=== PATIENT | female | born 1935 | race Caucasian/White ===

== ENCOUNTER 2016-07-01 08:10 | Inpatient (IN) | payer OTHER ==
[~2016-07-01] VITALS: Ht 158.8 cm; Wt 68.7 kg
[~2016-07-01 08:10] MED LIST: ALBUAER2 INH; CALC600T9 PO; CAND1TAB21 PO; FLUT44AE INH; LEVO75TA5 PO; OLOP0.1S2 OPB; PLQ200 PO; PRD/1 PO
[2016-07-01] MEDS ORDERED: MoRPHine SULFATE 4 MG/ML 1 ML CARP\\VIAL IV STA (08:19)
[2016-07-01] MEDS ORDERED: SODIUM CHLORIDE 0.9% 500ML 500 ML IV STA (08:19)
--- NOTE | 2016-07-01 08:24 | EMERGENCY ROOM VISIT NOTE ---
History Report prepared by Rolf: Jeb Garcia Under the Supervision of: Dr. Thong Smiley M.D. First contact with patient: 08:10 Chief Complaint: CARDIAC ASSESSMENT Stated Complaint: CHEST PAIN History of Present Illness The patient is an 80 year old female who presents to the Emergency Room with complaints of improving right-sided chest pain that started at approximately 0630 this morning. The patient was sitting watching the news at onset. She came to the ED via ambulance, where she was given 3 doses of sublingual nitroglycerin , aspirin 324 mg, and 4 mg Zofran for nausea. There are no worsening factors known to the patient. The patient also complains of generalized weakness. She had similar pain two weeks ago. The patient has a history of cancer. She is s/p right breast mastectomy. The patient lives at home with her . Source of History: patient, EMS Onset: 0630 this morning Position: chest (right) Timing: other (improving) Modifying Factors (Worsening): other (none) Associated Symptoms: + nausea, + weakness Review of Systems See HPI for pertinent positives & negatives. A total of 10 systems reviewed and were otherwise negative. Past Medical & Surgical Medical Problems: (1) Chest pain Surgical Problems: (1) H/O mastectomy Family History Patient reports no known family medical history. Social History Marital Status: Housing Status: lives with family Current/Historical Medications Scheduled Alendronate/Cholecalciferol (Fosamax+D 70MG/2800 Iu), 1 TABLET PO WK Calcium Carbonate-Vitamin D (Calcium + D), 1 TAB PO QAM Calcium W/ Vitamins D & K (Viactiv), 1,000 INTER.UNIT PO DAILY Candesartan Cilexetil (Atacand), 32 MG PO DAILY Fluticasone Propionate (Flovent Hfa), 2 PUFFS INH BID Fluticasone Propionate (Nasal) (Flonase Allergy Relief), 2 SPRAYS KOJO DAILY Hydroxychloroquine Sulfate (Hydroxychloroquine Sulfat), 200 MG PO DAILY Levothyroxine Sodium (Levothyroxine Sodium), 75 MCG PO QAM Olopatadine Hcl (Patanol 0.1% Oph), 1 DROP OPB BID Prednisone (Prednisone), 7.5 MG PO DAILY [Azelastine Hcl ], 2 PUFFS NA DAILY Allergies Coded Allergies: Meperidine (Verified Allergy, Mild, 07/01/16) Polyethylene Glycol (Verified Allergy, Mild, 07/01/16) Uncoded Allergies: GO LYTE BOWEL PREP (Allergy, Unknown, HIVES, 08/16/14) Physical Exam Vital Signs Date Time Temp Pulse Resp B/P Pulse Ox O2 Delivery O2 Flow Rate FiO2 07/01/16 10:30 76 20 139/68 100 Nasal Cannula 2.0 07/01/16 10:11 78 20 127/69 100 Nasal Cannula 2.0 07/01/16 09:43 73 18 119/70 97 Nasal Cannula 2.0 07/01/16 08:51 71 18 121/74 97 Nasal Cannula 2.0 07/01/16 08:30 72 18 113/54 97 Nasal Cannula 2.0 07/01/16 08:21 75 07/01/16 08:20 96 Nasal Cannula 2.0 07/01/16 08:13 96 Nasal Cannula 2.0 07/01/16 08:13 96 2.0 07/01/16 08:11 36.5 77 20 116/55 95 Room Air Physical Exam GENERAL: Patient is a healthy-appearing well-nourished HEAD: Normocephalic atraumatic EYES: Ocular movements intact pupils equal and react to light OROPHARYNX mucous membranes are moist no exudates present no erythema or edema present NECK: Supple no nuchal rigidity CHEST: Good equal expansion LUNGS: Clear and equal to auscultation CARDIAC: Normal S1 and S2 ABDOMEN: Soft nontender no guarding BACK: No CVA tenderness EXTREMITIES: No pain upon palpation normal muscle strength in all groups no clubbing cyanosis or edema NEURO: Patient is following commands is answering questions appropriately. Alert and oriented x3 Cranial Nerves 2-12 grossly intact Medical Decision & Procedures ER Provider Diagnostic Interpretation: X-ray results as stated below per interpretation by me and the radiologist: CHEST ONE VIEW PORTABLE CLINICAL HISTORY: CHEST PAIN dyspnea COMPARISON STUDY: No previous studies for comparison. FINDINGS: The bones soft tissues and hemidiaphragms are normal. The cardiomediastinal silhouette is normal. The lungs are clear. The pulmonary vasculature is normal. IMPRESSION: Negative chest. Electronically signed by: Nabeel Garcia M.D. 07/01/2016 8:48 AM Dictated Date/Time: 07/01/2016 8:47 AM Laboratory Results 07/01/16 08:00 Red Blood Count 3.95, Mean Corpuscular Volume 91.1, Mean Corpuscular Hemoglobin 29.4, Mean Corpuscular Hemoglobin Concent 32.2, Mean Platelet Volume 9.4, Neutrophils (%) (Auto) 60.8, Lymphocytes (%) (Auto) 23.0, Monocytes (%) (Auto) 8.2, Eosinophils (%) (Auto) 7.0, Basophils (%) (Auto) 0.6, Neutrophils # (Auto) 7.37, Lymphocytes # (Auto) 2.79, Monocytes # (Auto) 1.00, Eosinophils # (Auto) 0.85, Basophils # (Auto) 0.07 07/01/16 08:00 Test 07/01/16 08:00 07/01/16 08:23 07/01/16 08:25 White Blood Count 12.13 K/uL (4.8-10.8) Red Blood Count 3.95 M/uL (4.2-5.4) Hemoglobin 11.6 g/dL (12.0-16.0) Hematocrit 36.0 % (37-47) Mean Corpuscular Volume 91.1 fL (80-100) Mean Corpuscular Hemoglobin 29.4 pg (25-34) Mean Corpuscular Hemoglobin Concent 32.2 g/dl (32-36) Platelet Count 343 K/uL (130-400) Mean Platelet Volume 9.4 fL (7.4-10.4) Neutrophils (%) (Auto) 60.8 % Lymphocytes (%) (Auto) 23.0 % Monocytes (%) (Auto) 8.2 % Eosinophils (%) (Auto) 7.0 % Basophils (%) (Auto) 0.6 % Neutrophils # (Auto) 7.37 K/uL (1.4-6.5) Lymphocytes # (Auto) 2.79 K/uL (1.2-3.4) Monocytes # (Auto) 1.00 K/uL (0.11-0.59) Eosinophils # (Auto) 0.85 K/uL (0-0.5) Basophils # (Auto) 0.07 K/uL (0-0.2) RDW Standard Deviation 44.4 fL (36.4-46.3) RDW Coefficient of Variation 13.4 % (11.5-14.5) Immature Granulocyte % (Auto) 0.4 % Immature Granulocyte # (Auto) 0.05 K/uL (0.00-0.02) Prothrombin Time 10.7 SECONDS (9.0-12.0) Prothromb Time International Ratio 1.0 (0.9-1.1) Estimated GFR () 49.4 Estimated GFR (Non- 42.7 BUN/Creatinine Ratio 23.3 (10-20) Calcium Level 10.0 mg/dl (8.5-10.1) Total Bilirubin 0.3 mg/dl (0.2-1) Direct Bilirubin < 0.1 mg/dl (0-0.2) Aspartate Amino Transf (AST/SGOT) 18 U/L (15-37) Alanine Aminotransferase (ALT/SGPT) 17 U/L (12-78) Alkaline Phosphatase 73 U/L (45-117) Total Creatine Kinase 44 U/L (26-192) Creatine Kinase MB 0.5 ng/ml (0.5-3.6) Creatine Kinase MB Ratio 1.1 (0-3.0) Total Protein 7.1 gm/dl (6.4-8.2) Albumin 3.2 gm/dl (3.4-5.0) Lipase 143 U/L (73-393) Bedside D-Dimer 409 ng/mlFEU (0-450) Bedside Hemoglobin 11.6 g/dl (12.0-16.0) Bedside Hematocrit 34 % (37-47) Bedside Sodium 137 mEq/L (135-144) Bedside Potassium 3.8 mEq/L (3.3-5.0) Bedside Chloride 99 mEq/L (101-112) Bedside Total CO2 26 mEq/l (24-31) Anion Gap 16.0 mmol/L (16-25) Bedside Blood Urea Nitrogen 33 mg/dl (7-18) Bedside Creatinine 1.1 mg/dl (0.6-1.3) Bedside Glucose (other) 126 mg/dl (70-99) Bedside Ionized Calcium (Kina) 1.23 mmol/l (1.12-1.32) Labs reviewed by ED physician. Medications Administered Medications (Trade) Dose Ordered Sig/Elpidio Route Start Time Stop Time Status Last Admin Dose Admin Morphine Sulfate 4 mg 4 mg NOW STAT IV 07/01/16 08:19 07/01/16 08:21 DC 07/01/16 08:26 4 MG Sodium Chloride (Nss 500ml) 500 ml @ 999 mls/hr Q31M STAT IV 07/01/16 08:19 07/01/16 08:49 DC 07/01/16 08:19 999 MLS/HR ECG Indication: chest pain Rate (beats per minute): 75 Rhythm: sinus rhythm Findings: 1st degree AV block, no acute ischemic change, no ectopy Comparison ECG Date: 16 Aug 2014 Change: no significant change ED Course 0812: Past medical records reviewed. The patient was evaluated in room A1. A complete history and physical examination was performed. 0819: NSS 500 ml @ 999 mls/hr, Morphine Sulfate 4 mg IV. 0908: Updated the patient and her . 0955: Discussed the case with Dr. Luque [facility]. The patient will be evaluated. Medical Decision Differential diagnosis: Etiologies such as cardiac ischemia, aortic dissection, pulmonary embolism, pneumonia, pneumothorax, musculoskeletal, infections, pericarditis, myocarditis , esophageal rupture, gastrointestinal, as well as others were entertained. This is an 80-year-old female who presents emergency department complainingof chest pain. The patient was given nitroglycerin and aspirin without relief of the pain. She was given morphine and Zofran. She has normal CK-MB troponin. Her EKG a slight changes however does not meet STEMI criteria. Based on the findings I did discuss the case with the hospitalist service who agreed to admit the patient. Patient was in agreement with the treatment plan. Consults Time Called: 909 Consulting Physician: Dr. Luque [facility]. Returned Call: [phone]: Discussed the case with Dr. Luque [facility]. The patient will be evaluated. Impression Primary Impression: Right-sided chest pain Scribe Attestation The scribe's documentation has been prepared under my direction and personally reviewed by me in its entirety. I confirm that the note above accurately reflects all work, treatment, procedures, and medical decision making performed by me. Departure Information Dispostion Being Evaluated By Hospitalist Patient Instructions [facility]
[2016-07-01 08:35] LABS: BASO % 0.6 %; BASO ABS # 0.07 K/uL (0-0.2); COMPLETE YES; IG% 0.4 %; LYMPH ABS # 2.79 K/uL (1.2-3.4); MEAN CELL VOLUME 91.1 fL (80-100); MEAN CORPUSCULAR HEMOGLOBIN 29.4 pg (25-34); MEAN CORPUSCULAR HGB CONC 32.2 g/dl (32-36); MEAN PLATELET VOLUME 9.4 fL (7.4-10.4); MONO % 8.2 %; NEUT % 60.8 %; PLATELET COUNT 343 K/uL (130-400); RED BLOOD COUNT 3.95 M/uL (4.2-5.4); WHITE BLOOD COUNT 12.13 K/uL (4.8-10.8)
[2016-07-01 08:37] LABS: ISTAT CREATININE 1.1 mg/dl (0.6-1.3); ISTAT HEMOGLOBIN 11.6 g/dl (12.0-16.0); ISTAT IONIZED CALCIUM 1.23 mmol/l (1.12-1.32)
[2016-07-01 08:46] LABS: PROTHROMBIN TIME (PATIENT) 10.7 SECONDS (9.0-12.0)
--- NOTE | 2016-07-01 08:49 | DIAGNOSTIC IMAGING REPORT ---
CHEST ONE VIEW PORTABLE CLINICAL HISTORY: CHEST PAIN dyspnea COMPARISON STUDY: No previous studies for comparison. FINDINGS: The bones soft tissues and hemidiaphragms are normal. The cardiomediastinal silhouette is normal. The lungs are clear. The pulmonary vasculature is normal. IMPRESSION: Negative chest. Electronically signed by: Nabeel Garcia M.D. 07/01/2016 8:48 AM Dictated Date/Time: 07/01/2016 8:47 AM
[2016-07-01 08:55] LABS: ALT/SGPT 17 U/L (12-78); BLOOD UREA NITROGEN 28 mg/dl (7-18); BUN/CREATININE RATIO 23.3 (10-20); CARBON DIOXIDE 25 mmol/L (21-32); CHLORIDE 101 mmol/L (98-107); GLUCOSE 116 mg/dl (70-99); POTASSIUM 3.6 mmol/L (3.5-5.1); SODIUM 137 mmol/L (136-145)
[2016-07-01 09:00] LABS: ALKALINE PHOSPHATASE 73 U/L (45-117); AST/SGOT 18 U/L (15-37); CKMB/CK RATIO 1.1 (0-3.0)
[2016-07-01] MEDS ORDERED: FSMD/70 PO (09:03)
[2016-07-01] MEDS ORDERED: FLUT0.15 NAE (09:03)
[2016-07-01] MEDS ORDERED: CAND32TA2 PO (09:03)
[2016-07-01] MEDS ORDERED: AZELASTINE HCL (09:03)
[2016-07-01] MEDS ORDERED: CALC8.5C PO (09:03)
[2016-07-01] MEDS ORDERED: PRD/1 PO (09:03)
[2016-07-01] MEDS ORDERED: FLVHFA110 INH (09:03)
[2016-07-01] MEDS ORDERED: AZEL0.055 OP (09:03)
[2016-07-01] MEDS ORDERED: ALUMINUM/MAGNESIUM/SIMETH (MAALOX MAX) 30 ML UDC PO PRN (10:45)
[2016-07-01] MEDS ORDERED: ONDANSETRON INJ 2 MG/ML 2 ML VIAL IV PRN (10:45)
[2016-07-01] MEDS ORDERED: HydrALAZINE HCL 20 MG/ML VIAL IV. PRN (10:45)
[2016-07-01] MEDS ORDERED: NITROGLYCERIN 0.4 MG SL PER TAB CHARGE SL PRN (10:45)
[2016-07-01] MEDS ORDERED: ACETAMINOPHEN 325 MG TAB PO PRN (10:45)
[2016-07-01] MEDS ORDERED: MoRPHine SULFATE 2 MG/ML CARP IV PRN (10:45)
[2016-07-01] MEDS ORDERED: MAGNESIUM HYDROXIDE SUSP 30 ML UDC PO PRN (10:45)
--- NOTE | 2016-07-01 11:08 | History and Physical ---
History & Physical Date & Time of Service: Jul 01, 2016 at 10:42 Chief Complaint: Chest Pain Primary Care Physician: Travis Paredes M.D. History of Present Illness Source: patient, family, clinic records, hospital records Patient is a pleasant 80 y/o female, with PMHx of HTN, hypothyroidism, asthma, and RA, who presented to the ED because of right-sided CP. CP began around 0630 this AM. Pain is right-sided and radiates under right armpit. Denies any alleviating/aggravating factors. 1 episode of vomiting associated with CP. Currently, pain has improved, but still present. She does not described the pain as a pressure, but states "it's just painful." Patient admits to a similar episode a few weeks ago. She did not seek medical care at that time as pain quickly went away. She denies any cardiac history. Denies hx of DVT/PE, TIA/ stroke. Patient also admits to increase weakness- however, she attributes this to her RA. +chronic joint/muscle aches. Patient denies any fever, chills, sweats , lightheadedness, dizziness, vision changes, palpitations, edema, SOB, wheezing , cough, abdominal pain, nausea, diarrhea, urinary symptoms, melena, numbness/ tingling, anxiety/depression, active bleeding, or new skin discoloration/ changes. Past Medical/Surgical History Medical hx: 1. HTN 2. Hypothyroidism 3. Asthma 4. RA Surgical Problems: 1. s/p mastectomy 2. Colon surgery 3. Sinus surgery Family History 1. CHF 2. CAD 3. Colon cancer 4. Breast cancer 5. Ovarian cancer Social History Smoking Status: Former Smoker Marital Status: Housing status: lives with significant other Immunizations History of Influenza Vaccine: Yes History of Tetanus Vaccine?: No History of Pneumococcal: Yes History of Hepatitis B Vaccine: No Multi-Drug Resistant Organisms History of MDRO: No Allergies Coded Allergies: Meperidine (Verified Allergy, Mild, 07/01/16) Polyethylene Glycol (Verified Allergy, Mild, 07/01/16) Uncoded Allergies: GO LYTE BOWEL PREP (Allergy, Unknown, HIVES, 08/16/14) Home Medications Scheduled Alendronate/Cholecalciferol (Fosamax+D 70MG/2800 Iu), 1 TABLET PO WK Calcium Carbonate-Vitamin D (Calcium + D), 1 TAB PO QAM Calcium W/ Vitamins D & K (Viactiv), 1,000 INTER.UNIT PO DAILY Candesartan Cilexetil (Atacand), 32 MG PO DAILY Fluticasone Propionate (Flovent Hfa), 4 PUFFS INH DAILY Fluticasone Propionate (Nasal) (Flonase Allergy Relief), 2 SPRAYS KOJO DAILY Hydroxychloroquine Sulfate (Hydroxychloroquine Sulfat), 200 MG PO DAILY Levothyroxine Sodium (Levothyroxine Sodium), 75 MCG PO QAM Olopatadine Hcl (Patanol 0.1% Oph), 1 DROP OPB BID Prednisone (Prednisone), 7.5 MG PO DAILY [Azelastine Hcl ], 2 PUFFS PO DAILY Physical Exam Vital Signs Date Time Temp Pulse Resp B/P Pulse Ox O2 Delivery O2 Flow Rate FiO2 07/01/16 10:11 78 20 127/69 100 Nasal Cannula 2.0 07/01/16 09:43 73 18 119/70 97 Nasal Cannula 2.0 07/01/16 08:51 71 18 121/74 97 Nasal Cannula 2.0 07/01/16 08:30 72 18 113/54 97 Nasal Cannula 2.0 07/01/16 08:21 75 07/01/16 08:20 96 Nasal Cannula 2.0 07/01/16 08:13 96 Nasal Cannula 2.0 07/01/16 08:13 96 2.0 07/01/16 08:11 36.5 77 20 116/55 95 Room Air General Appearance: no apparent distress Head: normocephalic, atraumatic Eyes: normal inspection, PERRL ENT: hearing grossly normal Neck: supple Respiratory/Chest: lungs clear, no respiratory distress, no accessory muscle use Cardiovascular: regular rate, rhythm, + systolic murmur Abdomen/GI: normal bowel sounds, non tender, soft Extremities/Musculoskelatal: no calf tenderness, no pedal edema Neurologic/Psych: alert, normal mood/affect, oriented x 3 Skin: normal color, warm/dry, no rash Diagnostics Laboratory Results Results Past 24 Hours Test 07/01/16 08:00 07/01/16 08:23 07/01/16 08:25 Range/Units White Blood Count 12.13 4.8-10.8 K/uL Red Blood Count 3.95 4.2-5.4 M/uL Hemoglobin 11.6 12.0-16.0 g/dL Hematocrit 36.0 37-47 % Mean Corpuscular Volume 91.1 80-100 fL Mean Corpuscular Hemoglobin 29.4 25-34 pg Mean Corpuscular Hemoglobin Concent 32.2 32-36 g/dl Platelet Count 343 130-400 K/uL Mean Platelet Volume 9.4 7.4-10.4 fL Neutrophils (%) (Auto) 60.8 % Lymphocytes (%) (Auto) 23.0 % Monocytes (%) (Auto) 8.2 % Eosinophils (%) (Auto) 7.0 % Basophils (%) (Auto) 0.6 % Neutrophils # (Auto) 7.37 1.4-6.5 K/uL Lymphocytes # (Auto) 2.79 1.2-3.4 K/uL Monocytes # (Auto) 1.00 0.11-0.59 K/uL Eosinophils # (Auto) 0.85 0-0.5 K/uL Basophils # (Auto) 0.07 0-0.2 K/uL RDW Standard Deviation 44.4 36.4-46.3 fL RDW Coefficient of Variation 13.4 11.5-14.5 % Immature Granulocyte % (Auto) 0.4 % Immature Granulocyte # (Auto) 0.05 0.00-0.02 K/uL Prothrombin Time 10.7 9.0-12.0 SECONDS Prothromb Time International Ratio 1.0 0.9-1.1 Sodium Level 137 136-145 mmol/L Potassium Level 3.6 3.5-5.1 mmol/L Chloride Level 101 98-107 mmol/L Carbon Dioxide Level 25 21-32 mmol/L Anion Gap 11.0 16.0 16-25 mmol/L Blood Urea Nitrogen 28 7-18 mg/dl Creatinine 1.20 0.60-1.20 mg/dl Estimated GFR () 49.4 Estimated GFR (Non- 42.7 BUN/Creatinine Ratio 23.3 10-20 Random Glucose 116 70-99 mg/dl Calcium Level 10.0 8.5-10.1 mg/dl Total Bilirubin 0.3 0.2-1 mg/dl Direct Bilirubin < 0.1 0-0.2 mg/dl Aspartate Amino Transf (AST/SGOT) 18 15-37 U/L Alanine Aminotransferase (ALT/SGPT) 17 12-78 U/L Alkaline Phosphatase 73 45-117 U/L Total Creatine Kinase 44 26-192 U/L Creatine Kinase MB 0.5 0.5-3.6 ng/ml Creatine Kinase MB Ratio 1.1 0-3.0 Troponin I < 0.015 0-0.045 ng/ml Total Protein 7.1 6.4-8.2 gm/dl Albumin 3.2 3.4-5.0 gm/dl Lipase 143 73-393 U/L Bedside D-Dimer 409 0-450 ng/mlFEU Bedside Hemoglobin 11.6 12.0-16.0 g/dl Bedside Hematocrit 34 37-47 % Bedside Sodium 137 135-144 mEq/L Bedside Potassium 3.8 3.3-5.0 mEq/L Bedside Chloride 99 101-112 mEq/L Bedside Total CO2 26 24-31 mEq/l Bedside Blood Urea Nitrogen 33 7-18 mg/dl Bedside Creatinine 1.1 0.6-1.3 mg/dl Bedside Glucose (other) 126 70-99 mg/dl Bedside Ionized Calcium (Kina) 1.23 1.12-1.32 mmol/l Diagnostic Radiology CHEST ONE VIEW PORTABLE CLINICAL HISTORY: CHEST PAIN dyspnea COMPARISON STUDY: No previous studies for comparison. FINDINGS: The bones soft tissues and hemidiaphragms are normal. The cardiomediastinal silhouette is normal. The lungs are clear. The pulmonary vasculature is normal. IMPRESSION: Negative chest. Electronically signed by: Nabeel Garcia M.D. 07/01/2016 8:48 AM Dictated Date/Time: 07/01/2016 8:47 AM The status of this report is Signed. Draft = Not yet reviewed or approved by Radiologist. Signed = Reviewed and approved by Radiologist. EKG VARGHESE ROSS ID:[id number] 01-JUL-2016 08:13:09 [facility] Sinus rhythm with 1st degree A-V block ST elevation, consider lateral injury pattern Abnormal ECG When compared with ECG of 16-AUG-2014 11:22, ST elevation now present in Lateral leads Confirmed by MARTA LUDWIG ([id number]) on 07/01/2016 10:52:29 AM 25mm/s 10mm/mV 150Hz 8.0 SP2 12SL 241 HD DARCI: 12 Referred by: Confirmed By: MARTA OZIEL Vent. rate 75 BPM PA interval 210 ms QRS duration 96 ms QT/QTc 396/442 ms P-R-T axes 45 16 1935 (80 yr) Female Room: Loc:15 [employer]s Architect:NARCISO ALCARAZ Test ind: Impression Assessment and Plan 80 y/o female, with PMHx of HTN, hypothyroidism, asthma, and RA, who presented to the ED because of right-sided CP Cardiac r/o: - Admit tele for cardiac monitoring - Trend cardiac enzymes- initial set negative - Check lipid panel and ha1c - IV NSS @ 80 ml/hr - IV Morphine 0.5 mg q3 hrs PRN for severe pain, Tylenol 650 mg PO PRN for mild- moderate pain - Start ASA 81 mg PO daily - Check ECHO - EKG- ST elevation in lateral leads. Repeat tomorrow AM - PRP and mag level tomorrow AM Leukocytosis, like secondary to Prednisone treatment for RA: - CXR- no acute processes - Check U/A - Follow CBC Weakness: Consult PT/OT HTN: - Continue Atacand 32 mg PO daily - Hydralazine 10 mg IV PRN SBP >170 or DBP >100 Hypothyroidism: - Continue Synthroid 75 mcg PO daily - TSH in Feb 2016 WNL Asthma: Continue home inhalers RA: Continue Plaquenil 200 mg PO daily, Prednisone 7.5 mg PO daily DVT prophylaxis: Heparin 5000 units SQ q12 hrs, TARYN and SCDs Code Status: LEVEL I, FULL Dispo: From home, lives with Level of Care Telemetry Resuscitation Status FULL RESUSCITATION VTE Prophylaxis VTE Risk Assessment Done? Y/N: Yes Risk Level: Moderate Given or contraindicated: Unfractionated heparin SQ
[2016-07-01] MEDS ORDERED: IV FLUIDS COMPLETED PRN (11:45)
[2016-07-01 12:15] VITALS: BP 132/68; PULSE 84; TEMP 36.8; O2SAT 94; Ht 158.8 cm; Wt 68.7 kg
[2016-07-01] MEDS: NSS + 20MEQ KCL 1000ML 1,000 ML IV SCH (14:22)
[2016-07-01] MEDS: AZELASTINE~ORDER AWAITING ACTION SCH (14:23)
[2016-07-01 15:20] VITALS: BP 144/79; PULSE 77; TEMP 36.6; O2SAT 98
[2016-07-01] MEDS ORDERED: METOPROLOL TARTRATE 25 MG TAB PO ONE (15:44)
[2016-07-01] MEDS ORDERED: ATORVASTATIN 10 MG TAB PO ONE (15:45)
[2016-07-01 16:03] LABS: URINE APPEARANCE CLEAR (CLEAR); URINE BILIRUBIN NEG (NEG); URINE COLOR YELLOW; URINE EPITHELIAL CELL AUTO 0-5 /lpf (0-5); URINE NITRITE NEG (NEG); URINE SPECIFIC GRAVITY 1.015 (1.000-1.030); UROBILINOGEN NEG (NEG); ZZUR CULT IF INDIC CLEAN CATCH NO
[2016-07-01 16:05] LABS: MANUAL MICROSCOPIC REQUIRED? NO; REVIEW REQ? NO
--- NOTE | 2016-07-01 18:12 | DIAGNOSTIC IMAGING REPORT ---
BILATERAL LOWER EXTREMITY VENOUS DOPPLER HISTORY: leg pain, swelling COMPARISON STUDY: None. FINDINGS: There is normal compressibility, flow, and augmentation within the bilateral lower extremity deep venous systems. IMPRESSION: No DVT within the right or left lower extremity. Electronically signed by: Regan Boyce M.D. 07/01/2016 6:11 PM Dictated Date/Time: 07/01/2016 6:10 PM
[2016-07-01] MEDS: HEPARIN 25,000 UNIT/500ML D5W 500 ML IV PRN (18:14)
[2016-07-01 18:46] VITALS: BP 149/72; PULSE 76; TEMP 36.8; O2SAT 95
[2016-07-01 20:15] VITALS: O2SAT 95
[2016-07-01] MEDS ORDERED: HEPARIN SOD 5000 UNIT/0.5 ML CARP SQ SCH (21:00)
[2016-07-01] MEDS: METOPROLOL TARTRATE 25 MG TAB PO SCH (21:21)
[2016-07-01] MEDS: FLUTICASONE HFA 110MCG INHALER INH SCH (21:21)
--- NOTE | 2016-07-01 21:34 | CARDIOLOGY CONSULTATION ---
DATE OF CONSULTATION: 07/01/2016 CONSULTING PHYSICIAN: Dr. Miller. REASON FOR CONSULTATION: NSTEMI. TIME: 1708 p.m. HISTORY OF PRESENT ILLNESS: Mrs. Malave is a pleasant 80-year-old female with a history significant for hypertension, rheumatoid arthritis and hypothyroidism. She reported to [facility] with chest pain. Approximately 2 weeks ago, she had chest discomfort while sitting watching TV. She described it as an achy sensation throughout her entire chest. There was no radiation, shortness of breath or diaphoresis. There was no specific trigger and it spontaneously resolved within 3-5 minutes. For the past week while exercising she has noticed decreased exercise tolerance. She walks on a treadmill for 60-70 minutes each day. She stated that she reduced speed due to this decreased exercise tolerance throughout the past week. She had no exertional chest pain; however, or shortness of breath. She woke up this morning at approximately 4:30 a.m. Sometime between then and 6:30, she developed a sharp right-sided chest discomfort. It radiated to her right axilla. She then went to the restroom and had 2 or 3 bowel movements, developed nausea and one episode of vomiting. Although it felt as though she had difficulty taking deep breaths, there was no definite shortness of breath. There was no diaphoresis. She eventually called 911. Three nitroglycerins sprays were given without relief. She also had 4 baby aspirin. She was given morphine and this helped her symptoms. Her symptoms persisted throughout the day before completely resolving early this afternoon. She is completely chest pain free at this time. She denies shortness of breath, syncope, near syncope, palpitations, lower extremity edema, fevers, chills, abdominal pain. She denies melena, hematochezia, hematuria, or other bleeding. Approximately a week ago, she had left lower extremity pain which she attributed to Polanco cyst. There was no erythema or swelling per her report. This pain resolved. There has not been any injury to that area and there has not been any recent travel. She denies any history of clotting disorder or previous clot. REVIEW OF SYSTEMS: As above and otherwise review of systems is negative. PAST MEDICAL HISTORY: 1. Hypertension. 2. Hypothyroidism. 3. Asthma. 4. Rheumatoid arthritis. 5. Colon cancer in 1992, status post colon surgery. 6. Breast cancer in 1993, status post right mastectomy. She has not received any chemotherapy or radiation therapy. 7. Sinus surgery. 8. Left TKA. HOME MEDICATIONS: Include Atacand 32 mg daily, levothyroxine 75 mcg daily, prednisone 5 mg daily, Fosamax. INPATIENT MEDICATIONS: Include aspirin 325 mg daily, Lipitor 10 mg daily, Atacand 24 mg daily, heparin drip per protocol, Synthroid 75 mcg daily, metoprolol tartrate 12.5 mg p.o. b.i.d., prednisone 7.5 mg daily. ALLERGIES: GOLYTELY BOWEL PREP, MEPERIDINE, POLYETHYLENE GLYCOL. SOCIAL HISTORY: Quit smoking greater than 30 years ago. This was after approximately 20 pack years. No alcohol. No drugs. She is , lives with her . She has 2 children, 1 in [place] and 1 in [place]. She has no grandchildren. She is currently alone in her hospital room. FAMILY HISTORY: Father at the age of 52 with myocardial infarction. Mother at the age of 98. PHYSICAL EXAMINATION: VITAL SIGNS: Temperature 36.6 degrees, heart rate 77 beats per minute, respiration rate 19, blood pressure 144/79 mmHg; however, blood pressure has otherwise been normotensive. Oxygen saturation 98% on room air. Weight is 68 kg. GENERAL: In no acute distress. She is alert and oriented. HEENT: Anicteric sclerae. NECK: No appreciable JVD. No bruits. Normal carotid upstrokes bilaterally. CARDIAC: PMI nonpalpable. There was no ventricular heave. Regular, normal S1, S2. 2/6 early to mid peaking systolic ejection murmur best heard at the right upper sternal border. No rubs or gallops. LUNGS: Clear to auscultation bilaterally without wheezes, rales or rhonchi. ABDOMEN: Soft, nontender, nondistended, normoactive bowel sounds, no bruits noted. EXTREMITIES: Rheumatoid arthritic changes to her hands. 2+ radial pulses bilaterally. Anjel's test okay. She does have more swelling in her right wrist which she states is typical for her rheumatoid arthritis. 2+ femoral pulses bilaterally without bruits. 2+ dorsalis pedis pulses bilaterally. No cyanosis. No lower extremity edema. No palpable cords. PSYCHIATRIC: Affect appears appropriate. ECG upon presentation demonstrated sinus rhythm with first-degree AV block. There was ST elevation in the lateral leads, which was new compared to 08/16/2014. A repeat ECG was ordered following our visit. This was personally reviewed as well. Sinus rhythm at 69 beats per minute. Lateral ST elevation no longer present. LABORATORY DATA: White blood cell count 12.13, hemoglobin 11.6, platelets 343. Sodium 137, potassium 3.6, BUN 28, creatinine 1.2. Initial troponin was undetectable. Repeat troponin at 1345 was 0.913, AST 18, ALT 17, albumin 3.2. INR is 1. D-dimer 409. Lower extremity duplex report reviewed. No DVT reported by radiology. Chest x-ray image personally reviewed. No acute abnormality visualized. Radiology interpretation "negative chest." Telemetry personally reviewed. No arrhythmias. ASSESSMENT AND PLAN: 1. Acute myocardial infarction: Her chest discomfort is atypical in the sense that it is in the right side of the chest; however, she had abnormal ECG and abnormal troponin levels with recent decreased exercise tolerance. She actually had mild ST elevations in the lateral leads. Continue telemetry. Agree with heparin drip. Continue beta-primitivo if tolerated. Recommend high intensity statin therapy. Echocardiogram pending. We discussed treatment strategies. We also discussed cardiac catheterization. Risks and benefits were discussed with her in detail. Coronary angiography is being considered for tomorrow now that her lower extremity duplex is negative. She was made aware that CT surgery is not available at this facility. There is no urgent indication for cardiac catheterization at this time as she is completely asymptomatic without chest pain and her ST elevations have resolved. She was asked to notify nursing staff immediately for recurrent symptoms. 2. Hypertension: Blood pressure has been adequately controlled. Her most recent blood pressure was slightly elevated, but otherwise normotensive. Continue current regimen for now. 3. Lipids: A fasting lipid profile will be ordered for tomorrow morning. For now, will increase atorvastatin for high intensity statin therapy given myocardial infarction. 4. Disposition: Cardiology will continue to follow. The patient's care has been discussed with Dr. Miller, primary hospitalist. Highly complex medical issues. Thank you for allowing me to participate in the care of Ms. Malave. MARÍA
[2016-07-01 22:53] VITALS: BP 145/74; PULSE 68; TEMP 36.6; O2SAT 95
[2016-07-02] VITALS (16 sets, daily range): BP systolic 114–152; BP diastolic 69–82; PULSE 62–75; TEMP 36.2–36.8; O2SAT 93–98
[2016-07-02 01:29] LABS: PARTIAL THROMBOPLASTIN RATIO 3.2
[2016-07-02] MEDS: NSS + 20MEQ KCL 1000ML 1,000 ML IV SCH ×3 (04:30→22:21)
[2016-07-02] MEDS: LEVOTHYROXINE 75 MCG TAB PO SCH (07:05)
[2016-07-02 07:58] LABS: HEMATOCRIT 31.9 % (37-47); MEAN CELL VOLUME 91.1 fL (80-100); MEAN CORPUSCULAR HGB CONC 32.9 g/dl (32-36); MEAN PLATELET VOLUME 8.9 fL (7.4-10.4); PLATELET COUNT 292 K/uL (130-400); WHITE BLOOD COUNT 8.92 K/uL (4.8-10.8)
--- NOTE | 2016-07-02 07:59 | Hospitalist Progress Note ---
Hospitalist Progress Note Date of Service Jul 02, 2016. Subjective Pt evaluation today including: conversation w/ patient, physical exam, chart review, lab review, review of studies, review of inpatient medication list Pain: None PO Intake: NPO Voiding: no voiding problems The patient was seen and examined this morning. Pt is present at bedside. She reports no chest pain or tightenss this morning. She denies feeling short of breath today, but does complain of being more easily fatigued with exertion. Discussion was held regarding negative dopplers for DVT, and plans for cardiac cath later today. Dr. Mendenhall came into the room at the end of interview and reaffirmed the plan. Constitutional: + fatigue, No chills, No fever Eyes: No diplopia, No redness ENT: No nasal symptoms, No trouble swallowing Respiratory: + dyspnea on exertion, No cough, No dyspnea at rest, No sputum Cardiovascular: No chest pain, No palpitations Abdomen: No constipation, No diarrhea, No nausea, No pain, No vomiting Musculoskeletal: + joint pain (hx of RA), No muscle pain, No swelling Female : No dysuria, No hematuria Skin: No itch, No rash Objective Vital Signs Date Time Temp Pulse Resp B/P Pulse Ox O2 Delivery O2 Flow Rate FiO2 07/02/16 04:10 Room Air 07/02/16 03:36 36.5 74 22 138/74 95 Room Air 07/02/16 00:10 95 Room Air 07/01/16 22:53 36.6 68 18 145/74 95 Room Air 07/01/16 20:15 95 Room Air 07/01/16 18:46 36.8 76 18 149/72 95 Room Air 07/01/16 16:00 Room Air 07/01/16 15:20 36.6 77 19 144/79 98 Room Air 07/01/16 12:15 36.8 84 16 132/68 94 Room Air 07/01/16 11:40 72 20 131/64 100 Nasal Cannula 2.0 07/01/16 11:35 75 07/01/16 11:15 72 20 139/66 100 07/01/16 11:00 74 20 137/65 100 2.0 07/01/16 10:45 74 20 139/68 100 Nasal Cannula 2.0 07/01/16 10:30 76 20 139/68 100 Nasal Cannula 2.0 07/01/16 10:11 78 20 127/69 100 Nasal Cannula 2.0 07/01/16 09:43 73 18 119/70 97 Nasal Cannula 2.0 07/01/16 08:51 71 18 121/74 97 Nasal Cannula 2.0 07/01/16 08:30 72 18 113/54 97 Nasal Cannula 2.0 07/01/16 08:21 75 07/01/16 08:20 96 Nasal Cannula 2.0 07/01/16 08:13 96 Nasal Cannula 2.0 07/01/16 08:13 96 2.0 07/01/16 08:11 36.5 77 20 116/55 95 Room Air Physical Exam General Appearance: WD/WN, no apparent distress Eyes: PERRL, EOMI ENT: hearing grossly normal, pharynx normal Neck: no adenopathy, no JVD Respiratory/Chest: chest non-tender, lungs clear, no respiratory distress, no accessory muscle use Cardiovascular: regular rate, rhythm, + systolic murmur Abdomen: normal bowel sounds, non tender, soft, no organomegaly Extremities: non-tender, no pedal edema, no calf tenderness Neurologic/Psychiatric: alert, oriented x 3 Skin: normal color, warm/dry Laboratory Results Last 24 Hours Test 07/01/16 08:00 07/01/16 08:23 07/01/16 08:25 07/01/16 13:45 White Blood Count 12.13 K/uL Red Blood Count 3.95 M/uL Hemoglobin 11.6 g/dL Hematocrit 36.0 % Mean Corpuscular Volume 91.1 fL Mean Corpuscular Hemoglobin 29.4 pg Mean Corpuscular Hemoglobin Concent 32.2 g/dl Platelet Count 343 K/uL Mean Platelet Volume 9.4 fL Neutrophils (%) (Auto) 60.8 % Lymphocytes (%) (Auto) 23.0 % Monocytes (%) (Auto) 8.2 % Eosinophils (%) (Auto) 7.0 % Basophils (%) (Auto) 0.6 % Neutrophils # (Auto) 7.37 K/uL Lymphocytes # (Auto) 2.79 K/uL Monocytes # (Auto) 1.00 K/uL Eosinophils # (Auto) 0.85 K/uL Basophils # (Auto) 0.07 K/uL RDW Standard Deviation 44.4 fL RDW Coefficient of Variation 13.4 % Immature Granulocyte % (Auto) 0.4 % Immature Granulocyte # (Auto) 0.05 K/uL Prothrombin Time 10.7 SECONDS Prothromb Time International Ratio 1.0 Sodium Level 137 mmol/L Potassium Level 3.6 mmol/L Chloride Level 101 mmol/L Carbon Dioxide Level 25 mmol/L Anion Gap 11.0 mmol/L 16.0 mmol/L Blood Urea Nitrogen 28 mg/dl Creatinine 1.20 mg/dl Estimated GFR () 49.4 Estimated GFR (Non- 42.7 BUN/Creatinine Ratio 23.3 Random Glucose 116 mg/dl Calcium Level 10.0 mg/dl Total Bilirubin 0.3 mg/dl Direct Bilirubin < 0.1 mg/dl Aspartate Amino Transf (AST/SGOT) 18 U/L Alanine Aminotransferase (ALT/SGPT) 17 U/L Alkaline Phosphatase 73 U/L Total Creatine Kinase 44 U/L Creatine Kinase MB 0.5 ng/ml Creatine Kinase MB Ratio 1.1 Troponin I < 0.015 ng/ml 0.913 ng/ml Total Protein 7.1 gm/dl Albumin 3.2 gm/dl Lipase 143 U/L Bedside D-Dimer 409 ng/mlFEU Bedside Hemoglobin 11.6 g/dl Bedside Hematocrit 34 % Bedside Sodium 137 mEq/L Bedside Potassium 3.8 mEq/L Bedside Chloride 99 mEq/L Bedside Total CO2 26 mEq/l Bedside Blood Urea Nitrogen 33 mg/dl Bedside Creatinine 1.1 mg/dl Bedside Glucose (other) 126 mg/dl Bedside Ionized Calcium (Kina) 1.23 mmol/l Test 07/01/16 16:00 07/01/16 16:15 07/01/16 17:42 07/01/16 22:15 Creatine Kinase MB Ratio Creatine Kinase MB 16.7 ng/ml Activated Partial Thromboplast Time 25.5 SECONDS Partial Thromboplastin Ratio 1.0 Troponin I 6.580 ng/ml Test 07/02/16 00:00 07/02/16 01:00 07/02/16 04:44 Creatine Kinase MB Ratio Activated Partial Thromboplast Time 81.9 SECONDS Partial Thromboplastin Ratio 3.2 Creatine Kinase MB 24.0 ng/ml Assessment and Plan 80 y/o female, with PMHx of HTN, hypothyroidism, asthma, and RA, who presented to the ED because of right-sided CP STEMI - Cardiology consulted for increase ST elevation in the lateral leads, bump in trop to 0.9 on second set, now up to 6.35 and increased exercise intolerance over the past week. Plan for cardiac cath today per cards. - atorvastatin increased to 80 mg daily for statin therapy, continue beta blockade with metoprolol tartrate 12.5 mg BID, asa 81 mg daily - Started on heparin gtt - IV Morphine 0.5 mg q3 hrs PRN for severe pain, Tylenol 650 mg PO PRN for mild- moderate pain - Start ASA 81 mg PO daily - PRP, mag, Lipid panel and ha1c - PT/OT consulted - Venous U/S BLE negative for acute DVT Rheumatoid Arthritis -Continue Plaquenil 200 mg PO daily, Prednisone 7.5 mg PO daily Leukocytosis, like secondary to Prednisone treatment for RA: - CXR- no acute processes - UA is clear - Follow CBC HTN: - Continue Atacand 32 mg PO daily - started on metoprolol 12.5 mg BID for above, use hydralazine prn with parameters per EMR Hypothyroidism: - Continue Synthroid 75 mcg PO daily - TSH in Feb 2016 WNL Asthma, unspecified severity - Continue flovent DVT prophylaxis: Heparin 5000 units SQ q12 hrs, TARYN and SCDs Code Status: LEVEL I, FULL Dispo: From home, lives with , plan for cardiac cath today, discharge when medically stable, unknown at this time, >1 day.
[2016-07-02] MEDS: AZELASTINE~ORDER AWAITING ACTION SCH ×3 (08:00→17:17)
[2016-07-02 08:31] LABS: ESTIMATED AVERAGE GLUCOSE 134 mg/dl; HA1C FLAG Normal (Normal)
[2016-07-02 08:42] LABS: BUN/CREATININE RATIO 14.5 (10-20); CALCIUM 8.5 mg/dl (8.5-10.1); CHOLESTEROL/HDL RATIO 1.9; CREATININE 1.1 mg/dl (0.60-1.20); MAGNESIUM 2.2 mg/dl (1.8-2.4); POTASSIUM 4.3 mmol/L (3.5-5.1)
[2016-07-02 08:45] LABS: PARTIAL THROMBOPLASTIN RATIO 3.5
[2016-07-02] MEDS: FLUTICASONE PROPIONATE NA SPR 16 GM BTL NAE SCH (09:00)
[2016-07-02] MEDS ORDERED: ATORVASTATIN 10 MG TAB PO SCH (09:00)
[2016-07-02] MEDS ORDERED: ASPIRIN 325 MG ECTAB PO SCH (09:00)
[2016-07-02] MEDS: FLUTICASONE HFA 110MCG INHALER INH SCH ×2 (09:00→22:20)
[2016-07-02] MEDS ORDERED: ASPIRIN 81 MG ECTAB PO SCH (09:00)
[2016-07-02] MEDS: CANDESARTAN 8 MG TAB PO SCH (09:30)
[2016-07-02] MEDS: HYDROXYCHLOROQUINE SULFATE 200 MG TAB PO SCH (09:30)
[2016-07-02] MEDS: ATORVASTATIN 40 MG TAB PO SCH (09:31)
[2016-07-02] MEDS: METOPROLOL TARTRATE 25 MG TAB PO SCH ×2 (09:35→22:21)
[2016-07-02] MEDS ORDERED: METOPROLOL TARTRATE 25 MG TAB PO STA (10:26)
[2016-07-02] MEDS: HEPARIN 25,000 UNIT/500ML D5W 500 ML IV PRN (10:30)
--- NOTE | 2016-07-02 10:32 | ECHOCARDIOGRAM REPORT ---
*NOTICE TO RECEIVING [employer] This information is strictly Confidential and protected under [place] law. [place] law prohibits you from making any further disclosure of this information unless further disclosure is expressly permitted by the written consent of the person to whom it pertains or is authorized by law. A general authorization for the release of medical or other information is not sufficient for this purpose. Hospital accepts no responsibility if the information is made available to any other person, INCLUDING THE PATIENT. Interpretation Summary * Name: VARGHESE ROSS Study Date: 07/02/2016 06:43 AM BP: 138/75 mmHg * Patient Location: C.2T\S\S239\S\1 HR: 74 * : 1935 (M/d/yyyy) Gender: Female Height: 62 in * Age: 80 yrs Ethnicity: CA Weight: 146 lb * Ordering Physician: Elysia Davenport * Performed By: Renita Thompson * * Reason For Study: CHEST PAIN, NSTEMI * BSA: 1.7 m2 * -- Conclusions -- * 1. Normal left ventricular size and systolic function. EF 60-65%. Distal lateral wall and distal anterior wall appear severely hypokinetic to akinetic. No left ventricular hypertrophy. Type 2 diastolic dysfunction. * 2. Aortic valve sclerosis mild, without significant aortic valvular stenosis. * 3. There is mild mitral regurgitation. * 4. Normal estimated right ventricular systolic pressure; 25 mmHg. * 5. Technically difficult study. * 6. No prior study available for comparison. Procedure Details * A complete two-dimensional transthoracic echocardiogram was performed (2D, M-mode, Doppler and color flow Doppler). Left Ventricle * Normal left ventricular size and systolic function. EF 60-65%. Distal lateral wall and distal anterior wall appear severely hypokinetic to akinetic. No left ventricular hypertrophy. Type 2 diastolic dysfunction. Right Ventricle * The right ventricle is normal in size and function. * The right ventricular systolic function is normal as assessed by tricuspid annular plane systolic excursion (TAPSE) (normal >1.5 cm). Atria * The left atrial size is normal. * Right atrial size is normal. * There is no evidence of atrial septal defect, but resolution does not allow assessment for a patent foramen ovale. Mitral Valve * The mitral valve is normal in structure and function. * There is no mitral valve stenosis. * There is mild mitral regurgitation. Tricuspid Valve * The tricuspid valve is not well visualized, but is grossly normal. * There is no tricuspid stenosis. * There is mild tricuspid regurgitation. Aortic Valve * The aortic valve is trileaflet. * Aortic valve sclerosis mild, without significant aortic valvular stenosis. * No hemodynamically significant valvular aortic stenosis. * No aortic regurgitation is present. Pulmonic Valve * The pulmonary valve is inadequately visualized, but the Doppler data is adequate for interpretation. * There is no pulmonic valvular stenosis. * Trace pulmonic valvular regurgitation. Great Vessels * The aortic root is normal size. * Ascending aorta of normal dimension * Normal pulmonary venous flow pattern. Pericardium/Pleural * There is no pericardial effusion. Great Vessels * IVC normal in size. MMode 2D Measurements and Calculations IVSd 0.93 cm IVSs 1.3 cm LVIDd 3.6 cm LVIDs 2.2 cm LVPWd 0.87 cm LVPWs 1.7 cm IVS/LVPW 1.1 FS 39.2 % EDV(Teich) 54.5 ml ESV(Teich) 16.0 ml EF(Teich) 70.6 % EDV(cubed) 46.7 ml ESV(cubed) 10.5 ml EF(cubed) 77.5 % % IVS thick 38.0 % % LVPW thick 97.0 % LV mass(C)d 93.0 grams LV mass(C)dI 55.6 grams/m\S\2 LV mass(C)s 108.3 grams LV mass(C)sI 64.8 grams/m\S\2 SV(Teich) 38.4 ml SI(Teich) 23.0 ml/m\S\2 SV(cubed) 36.2 ml SI(cubed) 21.6 ml/m\S\2 Ao root diam 3.4 cm Ao root area 8.9 cm\S\2 ACS 1.4 cm LA dimension 3.1 cm asc Aorta Diam 3.3 cm LA/Ao 0.91 LVOT diam 2.0 cm LVOT area 3.3 cm\S\2 Doppler Measurements and Calculations MV E max heriberto 121.3 cm/sec MV A max heriberto 113.8 cm/sec MV E/A 1.1 MV dec time 0.20 sec Ao V2 max 141.2 cm/sec Ao max PG 8.0 mmHg Ao max PG (full) 2.5 mmHg KINGSLEY(V,A) 2.7 cm\S\2 KINGSLEY(V,D) 2.7 cm\S\2 LV V1 max PG 5.5 mmHg LV V1 max 117.0 cm/sec MR max heriberto 480.2 cm/sec MR max PG 92.2 mmHg TV E max heriberto 57.2 cm/sec PA V2 max 77.6 cm/sec PA max PG 2.4 mmHg PI end-d heriberto 65.9 cm/sec TR max heriberto 232.9 cm/sec RVSP(TR) 24.7 mmHg RAP systole 3.0 mmHg
--- NOTE | 2016-07-02 10:51 | CARDIOLOGY PROGRESS NOTE ---
DATE: 07/02/2016 TIME: 10:24 a.m. SUBJECTIVE: She has not had any further chest discomfort. She denies shortness of breath, syncope, near syncope, palpitations. She denies any bleeding. Her is present at the bedside. OBJECTIVE: VITAL SIGNS: Temperature 36.8 degrees, heart rate 71 beats per minute, respiration rate 20, blood pressure 148/77 mmHg. She has mostly been normotensive or mildly hypertensive. Oxygen saturation 96% on room air. I's and O's, positive 577 mL yesterday, weight is 66.3 kg. GENERAL: No acute distress. She is alert. NECK: No appreciable JVD. CARDIAC: No ventricular heave. Regular, normal S1 and S2. 2/6 early peaking systolic ejection murmur, best heard at the right upper sternal border. No rubs or gallops. LUNGS: Clear to auscultation bilaterally without wheezes, rales or rhonchi. ABDOMEN: Soft, nontender, nondistended. Normoactive bowel sounds. EXTREMITIES: No cyanosis or pitting edema. PSYCHIATRIC: Affect appears appropriate. MEDICATIONS: Include aspirin 325 mg daily, atorvastatin 80 mg daily, Atacand 24 mg daily, heparin drip per protocol, Synthroid 75 mcg daily, metoprolol tartrate 12.5 mg p.o. b.i.d., prednisone 7.5 mg daily. Telemetry personally reviewed. No arrhythmia. LABORATORY DATA: White blood cell count is 8.9, hemoglobin 10.5, platelets 292. Sodium 143, potassium 4.3, BUN 16, creatinine 1.1, magnesium 2.2. Troponin at 2215 last evening was 6.58, that is the peak thus far; however, there is no repeat troponin this morning. It will be added on at this time. PTT 90.3. LDL 48, HDL 66, triglycerides 51, total cholesterol 124. Echocardiogram images personally reviewed. There is hypokinesis to akinesis of the distal anterior wall and distal lateral wall. Mild MR. Sclerotic aortic valve. LV systolic function is normal. ECG from this morning personally reviewed. Sinus rhythm at 69 beats per minute. There is lateral T-wave inversion and there is anterolateral T-wave inversion. ASSESSMENT AND PLAN: 1. Acute myocardial infarction: She had ST elevations upon presentation with right-sided chest pain, which would be consistent with ST elevation myocardial infarction upon presentation. Upon the time of cardiac consultation, she was chest pain free and her ST elevations had resolved. Her troponin is climbing. Repeat troponin ordered. Cardiac catheterization has been discussed and recommended. She is agreeable to undergo the procedure at [facility] and PCI if deemed appropriate. She was made aware that CT surgery is not available at this facility. She is currently n.p.o. except for medications. Continue high intensity statin therapy. Continue beta primitivo and ARB. 2. Hypertension: Metoprolol will be increased to 25 mg twice daily. Continue her outpatient medication Atacand. 3. Systolic murmur: She has sclerotic aortic valve without significant stenosis. 4. Mitral regurgitation: Mild. No further evaluation necessary at this time. 5. Disposition: She is awaiting cardiac catheterization when the labor relations supervisor is available. If she should have recurrent symptoms, would recommend more urgent cardiac catheterization. Primary hospitalist service, Maki Carr PA-C, was present at the bedside for some of today's visit and we discussed the fact that she will be undergoing cardiac catheterization when the lab is available.
[2016-07-02] MEDS ORDERED: NiCARDipine HCL INJ 2.5 MG/ML 10 ML AMP ONE (14:46)
[2016-07-02] MEDS ORDERED: HEPARIN SOD (PORCINE) 1000 UNIT/ML 10 ML VIAL ONE (14:46)
[2016-07-02] MEDS ORDERED: NITROGLYCERIN/D5W 100MCG/ML 20ML SYR ONE (14:47)
[2016-07-02] MEDS ORDERED: MIDAZOLAM HCL 1 MG/ML 2ML VIAL ONE (14:47)
[2016-07-02] MEDS ORDERED: FENTANYL CITRATE INJ 50 MCG/1 ML 2 ML VIAL ONE (14:47)
--- NOTE | 2016-07-02 15:18 | Procedure Note ---
Pre-Mod Sedation Assessment General Date of Moderate Sedation: Jul 02, 2016. Vital Signs: Vital Signs Past 12 Hours Date Time Temp Pulse Resp B/P Pulse Ox O2 Delivery O2 Flow Rate FiO2 07/02/16 14:29 71 94 07/02/16 12:15 36.7 63 20 127/76 97 Room Air 07/02/16 12:00 Room Air 07/02/16 08:07 36.8 71 20 148/77 96 Room Air 07/02/16 08:00 95 Room Air 07/02/16 04:10 Room Air 07/02/16 03:36 36.5 74 22 138/74 95 Room Air Review Cardiovascular: regular rate, rhythm, + systolic murmur Abdomen: non tender, soft Lungs: lungs clear Pre-Sedation Airway Assessment Oral Cavity: WNL Smoking Status: Never Smoker Procedure Planning Contraindications-for Mod Sed: None Yes Notes The planned sedation has been discussed with the patient and consent obtained. I have identified the patient, determined the appropriateness of sedation and have assessed the patient immediately prior to the procedure. All medicine(s) and interventions are by my order.
--- NOTE | 2016-07-02 16:18 | Procedure Note ---
Post-Mod Sedation Assessment General Date of Moderate Sedation Jul 02, 2016. Vital Signs: Vital Signs Past 12 Hours Date Time Temp Pulse Resp B/P Pulse Ox O2 Delivery O2 Flow Rate FiO2 07/02/16 16:10 69 16 150/80 95 Room Air 07/02/16 16:00 69 16 145/80 95 Room Air 07/02/16 14:29 71 94 07/02/16 14:25 36.5 66 16 121/69 94 Room Air 07/02/16 12:15 36.7 63 20 127/76 97 Room Air 07/02/16 12:00 Room Air 07/02/16 08:07 36.8 71 20 148/77 96 Room Air 07/02/16 08:00 95 Room Air Review - Discharge Criteria Vital Signs Stable: Yes Alert/Oriented/Conversant: Yes Returned to Baseline Mental St: Yes Nausea Absent/Minimal: Yes Pain/Discomfort/Absent/Minimal: Yes Normal/Baseline Respirations: Yes Active Bleeding?: No
[2016-07-02] MEDS ORDERED: SODIUM CHLORIDE 0.9% 1000ML 1,000 ML IV SCH (16:19)
--- NOTE | 2016-07-02 16:36 | Cardiac Catheterization ---
Procedure Note Procedure Date Jul 02, 2016. Pre-Procedure Diagnosis STEMI (Patient presented with lateral ST elevation and right-sided chest pain. By the time of cardiology consultation, chest pain and ST elevation had already resolved. Because she was symptom free with normal ST segments at the time of consultation, there was no urgent indication for cardiac catheterization at that time.) AUC Score 9 Post-Procedure Diagnosis Normal Coronary Arteries, Elevated Intracardiac Pressures Procedure(s) Performed Coronary Angiography, Left Heart Cath Double Needle Stitcher Dr. Kauffman Tubing Oiler(s) Lilliana Estimated Blood Loss < 20 ml Medication(s) Fentanyl, Heparin, Nicardipine, Versed, Lidocaine 1% Summary of Findings Coronary angiography: 1. Left main coronary artery: The LMCA is large in caliber. No angiographic evidence of CAD. 2. Left anterior descending: The LAD is large and wraps around the apex. There is a large 1st diagonal vessel and medium caliber 2nd diagonal vessel. No angiographic evidence of CAD within the LAD system. 3. Circumflex: The circumflex is large and gives rise to a medium OM1. No angiographic evidence of CAD within the circumflex system. 4. Ramus intermedius: Medium caliber ramus without angiographic evidence of CAD. 5. Right coronary artery: The RCA is large and dominant. It gives rise to a large posterior lateral branch and posterior descending artery. No angiographic evidence of CAD within the RCA, PDA, PL branches. Left heart catheterization: 1. No significant aortic stenosis. Peak to peak gradient across the aortic valve was approximately 4 mmHg. 2. Normal left ventricular end-diastolic pressure; LVEDP 12 mmHg. 3. Left ventriculography was not performed as she had echocardiogram earlier today. Procedural notes: 1. Per patient request, the procedure was performed via left radial artery without complication. 2. There was some spasm when advancing the 6 Setswana JR4 diagnostic catheter and therefore they right coronary artery was visualized using a 4 Setswana JR4 catheter. Impression: 1. No significant CAD. 2. Normal LVEDP. 3. No significant aortic stenosis. 4. Cannot rule out coronary vasospasm, spontaneous lysis of coronary thrombus, or other etiology to explain her lateral ST-T abnormalities, wall motion abnormality on echo, and elevated troponin levels. Plan: 1. Continue risk factor modification. 2. Would continue aspirin therapy given myocardial injury. Hemodynamics Rest Ao: 125/59 Final Ao: 135/63 LV: 140/9 with LVEDP 12 Recommendations Medical therapy and/or Counseling Specimens None Radiation Exposure (mGy) 657 mGy. Fluoro time 3.8 min Contrast (mls) 60 ml Procedural Complication(s) None Disposition PCU ACC Data Cardiac Status Clinical evaluation leading to the procedure CAD Presntation: STEMI (Patient presented with lateral ST elevation and right- sided chest pain. By the time of cardiology consultation, chest pain and ST elevation had already resolved. Because she was symptom free with normal ST segments at the time of consultation, there was no urgent indication for cardiac catheterization at that time.) Anginal Classification: CCS IV Heart Failure: No Cardiogenic Shock w/in 24Hrs: No Cardiac Arrest w/in 24Hrs: No Imaging studies past 6 months: Yes Stress studies past 6 months: No Standard Exercise Stress Test: No Stress Echocardiogram: No Stress Testing w/SPECT MPI: No Cardiac CTA: No Coronary Anatomy Dominant: Right Left Main (% Stenosis): Normal LAD (% Stenosis): Normal D1 (% Stenosis): Normal D2 (% Stenosis): Normal Circumflex (% Stenosis): Normal OM1 (% Stenosis): Normal RCA (% Stenosis): Normal R PDA (% Stenosis): Normal R PL1 (% Stenosis): Normal Ramus (% Stenosis): Normal Left Ventricular Angiography EF (%): n/a Diagnostic Physician's Name: Cody Kauffman MD Status: Elective Closure Device Percutaneous Entry Location: Radial (Left radial per patient request) Closure Device: Radial Band Recommendations: Medical therapy and/or Counseling
[2016-07-03 00:10] VITALS: O2SAT 98
[2016-07-03 03:56] VITALS: BP 131/71; PULSE 64; TEMP 36.8; O2SAT 96
[2016-07-03 04:15] VITALS: O2SAT 96
[2016-07-03] MEDS: LEVOTHYROXINE 75 MCG TAB PO SCH (05:29)
--- NOTE | 2016-07-03 07:27 | Hospitalist Progress Note ---
Hospitalist Progress Note Date of Service Jul 03, 2016. Objective Vital Signs Date Time Temp Pulse Resp B/P Pulse Ox O2 Delivery O2 Flow Rate FiO2 07/03/16 04:15 96 Room Air 07/03/16 03:56 36.8 64 20 131/71 96 Room Air 07/03/16 00:10 98 Room Air 07/02/16 23:41 36.8 69 20 146/76 98 Room Air 07/02/16 20:00 94 Room Air 07/02/16 19:17 36.6 66 18 118/69 94 Room Air 07/02/16 17:46 36.7 75 16 114/74 93 Room Air 07/02/16 17:30 36.6 75 16 140/74 98 Room Air 07/02/16 17:00 36.2 65 16 146/82 96 Room Air 07/02/16 16:45 36.5 62 14 142/78 95 Room Air 07/02/16 16:30 36.5 64 14 148/80 96 Room Air 07/02/16 16:15 Room Air 07/02/16 16:15 36.2 65 16 152/82 95 Room Air 07/02/16 16:10 69 16 150/80 95 Room Air 07/02/16 16:00 69 16 145/80 95 Room Air 07/02/16 14:29 71 94 07/02/16 14:25 36.5 66 16 121/69 94 Room Air 07/02/16 12:15 36.7 63 20 127/76 97 Room Air 07/02/16 12:00 Room Air 07/02/16 08:07 36.8 71 20 148/77 96 Room Air 07/02/16 08:00 95 Room Air Laboratory Results Last 24 Hours Test 07/02/16 07:50 07/02/16 08:19 07/02/16 15:36 07/03/16 04:44 White Blood Count 8.92 K/uL Red Blood Count 3.50 M/uL Hemoglobin 10.5 g/dL Hematocrit 31.9 % Mean Corpuscular Volume 91.1 fL Mean Corpuscular Hemoglobin 30.0 pg Mean Corpuscular Hemoglobin Concent 32.9 g/dl RDW Standard Deviation 44.8 fL RDW Coefficient of Variation 13.5 % Platelet Count 292 K/uL Mean Platelet Volume 8.9 fL Sodium Level 143 mmol/L Potassium Level 4.3 mmol/L Chloride Level 110 mmol/L Carbon Dioxide Level 27 mmol/L Anion Gap 6.0 mmol/L Blood Urea Nitrogen 16 mg/dl Creatinine 1.10 mg/dl Est Creatinine Clear Calc Drug Dose 36.9 ml/min Estimated GFR () 54.9 Estimated GFR (Non- 47.4 BUN/Creatinine Ratio 14.5 Random Glucose 89 mg/dl Estimated Average Glucose 134 mg/dl Hemoglobin A1c 6.3 % Calcium Level 8.5 mg/dl Magnesium Level 2.2 mg/dl Troponin I 5.240 ng/ml Triglycerides Level 51 mg/dl Cholesterol Level 124 mg/dl HDL Cholesterol 66 mg/dl LDL Cholesterol, Calculated 48 mg/dl VLDL Cholesterol, Calculated 10 mg/dl Cholesterol/HDL Ratio 1.9 Activated Partial Thromboplast Time 90.3 SECONDS Partial Thromboplastin Ratio 3.5 Kaolin Activated Coagulation Time 157 SECONDS Assessment and Plan 80 y/o female, with PMHx of HTN, hypothyroidism, asthma, and RA, who presented to the ED because of right-sided CP STEMI - Cardiology consulted for increase ST elevation in the lateral leads, bump in trop to 0.9 on second set, now up to 6.35 and increased exercise intolerance over the past week. - Cardiac Cath performed on 07/02/16 Impression: 1. No significant CAD. 2. Normal LVEDP. 3. No significant aortic stenosis. 4. Cannot rule out coronary vasospasm, spontaneous lysis of coronary thrombus , or other etiology to explain her lateral ST-T abnormalities, wall motion abnormality on echo, and elevated troponin levels. - atorvastatin increased to 80 mg daily for statin therapy, continue beta blockade with metoprolol tartrate 12.5 mg BID, asa 81 mg daily - Started on heparin gtt - IV Morphine 0.5 mg q3 hrs PRN for severe pain, Tylenol 650 mg PO PRN for mild- moderate pain - Start ASA 81 mg PO daily - PRP, mag, Lipid panel and ha1c - PT/OT consulted - Venous U/S BLE negative for acute DVT Rheumatoid Arthritis -Continue Plaquenil 200 mg PO daily, Prednisone 7.5 mg PO daily Leukocytosis, like secondary to Prednisone treatment for RA: - CXR- no acute processes - UA is clear - Follow CBC HTN: - Continue Atacand 32 mg PO daily - started on metoprolol 12.5 mg BID for above, use hydralazine prn with parameters per EMR Hypothyroidism: - Continue Synthroid 75 mcg PO daily - TSH in Feb 2016 WNL Asthma, unspecified severity - Continue flovent DVT prophylaxis: Heparin 5000 units SQ q12 hrs, TARYN and SCDs Code Status: LEVEL I, FULL Dispo: From home, lives with , plan for cardiac cath today, discharge when medically stable, unknown at this time, >1 day.
[2016-07-03] MEDS: FLUTICASONE HFA 110MCG INHALER INH SCH (07:40)
[2016-07-03] MEDS: FLUTICASONE PROPIONATE NA SPR 16 GM BTL NAE SCH (07:40)
[2016-07-03] MEDS: METOPROLOL TARTRATE 25 MG TAB PO SCH (07:42)
[2016-07-03] MEDS: ATORVASTATIN 40 MG TAB PO SCH (07:44)
[2016-07-03] MEDS: CANDESARTAN 8 MG TAB PO SCH (07:45)
[2016-07-03] MEDS: HYDROXYCHLOROQUINE SULFATE 200 MG TAB PO SCH (07:47)
[2016-07-03 07:59] VITALS: PULSE 70; TEMP 36.7; O2SAT 95
[2016-07-03] MEDS ORDERED: LPT40 PO (08:52)
[2016-07-03] MEDS ORDERED: LPR25 PO (08:52)
[2016-07-03] MEDS ORDERED: ASPEC81 PO (08:52)
--- NOTE | 2016-07-03 08:58 | Discharge Instructions ---
Discharge Instructions Date of Service Jul 03, 2016. Admission Reason for Admission: Chest Pain Discharge Discharge Diagnosis / Problem: STEMI Discharge Goals Goal(s): Decrease discomfort, Improve function, Increase independence, Improve disease control Activity Recommendations Activity Limitations: per Instructions/Follow-up section Lifting Limitations: no more than 25 pounds, gradually increase as tolerated Exercise/Sports Limitations: gradually increase as tolerated May Resume Sexual Activity: after follow-up appointment Shower/Bathe: no limitations Driving or Machine Use: Do NOT drive until seen by your PCP for follow up . Instructions / Follow-Up Instructions / Follow-Up You were admitted to [facility] with Chest pain nd diagnosed with STEMI (heart attack) . During your stay here you were treated with medications including heparin drip ( to prevent clots from forming). Cardiology was consulted while you were here: Imaging studies which were completed include cardiac catheterization, and this was normal. You were started on medications including: atorvastatin, aspirin and a beta primitivo (metoprolol). Continue taking these as prescribed. You should follow up with Cardiology within 2-3 weeks and continue cardiac rehab as directed. Follow up with your Primary Care Provider within 1 week. Current Hospital Diet Patient's current hospital diet: AHA Diet (Heart Healthy) Discharge Diet Recommended Diet: AHA Diet (Heart Healthy) Procedures Procedures Performed: Cardiac Catheterization 07/02/16 Pending Studies Studies pending at discharge: no Laboratory Results Hemoglobin A1c Test 07/02/16 07:50 Range/Units Estimated Average Glucose 134 mg/dl Hemoglobin A1c 6.3 H 4.5-5.6 % Lipid Panel Test 07/02/16 07:50 Range/Units Triglycerides Level 51 0-150 mg/dl Cholesterol Level 124 0-200 mg/dl HDL Cholesterol 66 mg/dl Cholesterol/HDL Ratio 1.9 LDL Cholesterol, Calculated 48 mg/dl Medical Emergencies . Who to Call and When: Medical Emergencies: If at any time you feel your situation is an emergency, please call 911 immediately. . Non-Emergent Contact Non-Emergency issues call your: Primary Care Provider Call Non-Emergent contact if: your pain is not controlled, you have any medication questions fever, chills, sweats, abdominal pain, or if you have other concerns regarding your health. Call 911 or go directly to the Emergency Department if you develop shortness of breath, chest pain, decreased ability to tolerate exercise, pain radiating into your jaw or arm, or shortness of breath on exertion . Past History Medical & Surgical History: (1) Chest pain (2) STEMI (ST elevation myocardial infarction) (3) Right-sided chest pain . "Provider Documentation" section prepared by Maki Carr. VTE Core Measure Inpt VTE Proph given/why not?: Unfractionated heparin SQ
[2016-07-03] MEDS ORDERED: ASPIRIN 81 MG ECTAB PO SCH (09:00)
--- NOTE | 2016-07-03 09:11 | Discharge Summary ---
Discharge Summary Date of Service Jul 03, 2016. Discharge Summary Admission Date: Jul 02, 2016 at 07:56 Discharge Date: Jul 03, 2016 Discharge Disposition: Home Principal Diagnosis: STEMI Problems/Secondary Diagnoses: Hypothyroidism, rheumatoid arthritis, hypertension Immunizations: Have You Had Influenza Vaccine: Yes History of Tetanus Vaccine?: No History of Pneumococcal: Yes History of Hepatitis B Vaccine: No Procedures: Chest x-ray 07/01/16 IMPRESSION: Negative chest. Bilateral lower extremity venous Doppler 07/01/16 IMPRESSION: No DVT within the right or left lower extremity. Consultations: Cardiology Medication Reconciliation New Medications: Aspirin (Aspirin EC Low Dose) 81 Mg Ectab 81 MG PO QAM for 30 Days, #30 TAB Atorvastatin (Atorvastatin Calcium) 40 Mg Tab 40 MG PO QAM for 30 Days, #30 TAB Metoprolol Tartrate (Lopressor) 25 Mg Tab 25 MG PO BID for 30 Days, #60 TAB Continued Medications: Alendronate/Cholecalciferol (Fosamax+D 70MG/2800 Iu) 70 Mg Tab 1 TABLET PO WK, TAB Calcium Carbonate-Vitamin D (Calcium + D) 1 Tab Tab 1 TAB PO QAM Calcium W/ Vitamins D & K (Viactiv) 1 Chw Chw 1000 INTER.UNIT PO DAILY Candesartan Cilexetil (Atacand) 32 Mg Tab 32 MG PO DAILY, TAB Fluticasone Propionate (Flovent Hfa) 120 Puffs/32907 Mcg Aero 2 PUFFS INH BID for 30 Days, #1 INHALER 3 Refills Fluticasone Propionate (Nasal) (Flonase Allergy Relief) 50 Mcg/Act Spr 2 SPRAYS KOJO DAILY Hydroxychloroquine Sulfate (Hydroxychloroquine Sulfat) 200 Mg Tab 200 MG PO DAILY Levothyroxine Sodium (Levothyroxine Sodium) 75 Mcg Tab 75 MCG PO QAM Olopatadine Hcl (Patanol 0.1% Oph) 0.1 % Shruthi 1 DROP OPB BID, BTL Prednisone (Prednisone) 1 Mg Tab 7.5 MG PO DAILY, TAB [Azelastine Hcl ] () 2 PUFFS NA DAILY for ASTHMA Discharge Exam The patient was seen and examined this morning. Patient reports feeling well. Cardiac cath was completed yesterday afternoon, without significant findings. The patient denies having any chest pain, chest tightness, shortness of breath, headache, palpitation, flutter today. She has been ambulating about the room without difficulty or any complaints. She is looking forward to being discharged home today. ROS: Constitutional: No fever, chills, sweats, fatigue or weakness Eyes: No diplopia, no changes in vision ENT: No sore throat, tinnitus, or trouble swallowing Respiratory: No shortness of breath, No dyspnea at rest or on exertion, no cough or sputum Cardiovascular: No chest pain, palpitations, or flutter Abdomen: No pain, No constipation, No diarrhea, No nausea, No vomiting Musculoskeletal: No calf pain, No joint pain, No swelling Genitourinary : No dysuria or urinary frequency, No hematuria Neurologic: No numbness/tingling, no difficulty with ambulation, no sensory or motor deficits Psychiatric: No depression or anxiety symptoms Endocrine: No fatigue, No weight changes Integumentary: No itch, No rash Physical exam General: awake, alert, no apparent distress Head: Normocephalic, atraumatic ENT: PERRL, EOMI, no pharyngeal exudate, mucous membranes moist Chest: Clear to auscultation, on room air, no adventitious breath sounds Cardiac: Regular rate and rhythm, no murmur, no JVD, normal peripheral pulses, good capillary refill Abdominal: NABS x 4 quads, soft, nontender to palpation, no rebound guarding or tenderness Extremities: Normal inspection, no peripheral edema or erythema, calfs nontender to palpation Psych: Normal mood and affect Neuro: AAO x 3, strength intact bilaterally and related 5/5, no motor deficits, speech is clear, no peripheral sensory deficits Hospital Course H&P per Elysia Boyd PA-C History of Present Illness Source: patient, family, clinic records, hospital records Patient is a pleasant 80 y/o female, with PMHx of HTN, hypothyroidism, asthma, and RA, who presented to the ED because of right-sided CP. CP began around 0630 this AM. Pain is right-sided and radiates under right armpit. Denies any alleviating/aggravating factors. 1 episode of vomiting associated with CP. Currently, pain has improved, but still present. She does not described the pain as a pressure, but states "it's just painful." Patient admits to a similar episode a few weeks ago. She did not seek medical care at that time as pain quickly went away. She denies any cardiac history. Denies hx of DVT/PE, TIA/ stroke. Patient also admits to increase weakness- however, she attributes this to her RA. +chronic joint/muscle aches. Patient denies any fever, chills, sweats , lightheadedness, dizziness, vision changes, palpitations, edema, SOB, wheezing , cough, abdominal pain, nausea, diarrhea, urinary symptoms, melena, numbness/ tingling, anxiety/depression, active bleeding, or new skin discoloration/ changes. Physical exam Vital Signs Date Time Temp Pulse Resp B/P Pulse Ox O2 Delivery O2 Flow Rate FiO2 07/01/16 10:11 78 20 127/69 100 Nasal Cannula 2.0 07/01/16 09:43 73 18 119/70 97 Nasal Cannula 2.0 07/01/16 08:51 71 18 121/74 97 Nasal Cannula 2.0 07/01/16 08:30 72 18 113/54 97 Nasal Cannula 2.0 07/01/16 08:21 75 07/01/16 08:20 96 Nasal Cannula 2.0 07/01/16 08:13 96 Nasal Cannula 2.0 07/01/16 08:13 96 2.0 07/01/16 08:11 36.5 77 20 116/55 95 Room Air General Appearance: no apparent distress Head: normocephalic, atraumatic Eyes: normal inspection, PERRL ENT: hearing grossly normal Neck: supple Respiratory/Chest: lungs clear, no respiratory distress, no accessory muscle use Cardiovascular: regular rate, rhythm, + systolic murmur Abdomen/GI: normal bowel sounds, non tender, soft Extremities/Musculoskelatal: no calf tenderness, no pedal edema Neurologic/Psych: alert, normal mood/affect, oriented x 3 Skin: normal color, warm/dry, no rash Hospital course: 80 y/o female, with PMHx of HTN, hypothyroidism, asthma, and RA, who presented to the ED because of right-sided CP. The patient was evaluated via cardiac catheterization on 07/02/[address] Tony Kauffman without significant findings. The patient denies having any cardiac complaints this morning. It's possible that the patient had coronary vasospasm at the initial timing of her cardiac symptoms, or possible that she had a clot which lysed. Cardiology is recommending the patient be seen in their office in 2-3 weeks and in the meantime complete cardiac rehabilitation as an outpatient with home health PT OT. She has been instructed to return to the hospital or call her PCP if she develops worsening or new occurrence of similar symptoms including but not limited to chest pain, shortness breath, chest tightness, flutter, palpitation, headache, dyspnea on exertion. STEMI - Cardiology consulted for increase ST elevation in the lateral leads, bump in trop to 0.9 on second set, now up to 6.35 and increased exercise intolerance over the past week. - Cardiac Cath performed on 07/02/16 Impression: 1. No significant CAD. 2. Normal LVEDP. 3. No significant aortic stenosis. 4. Cannot rule out coronary vasospasm, spontaneous lysis of coronary thrombus , or other etiology to explain her lateral ST-T abnormalities, wall motion abnormality on echo, and elevated troponin levels. - Discharge medications include: atorvastatin 40 mg daily for statin therapy, continue beta blockade with metoprolol tartrate 12.5 mg BID, asa 81 mg daily - Lipid panel was checked and WNL, and ha1c =6.3 - Venous U/S BLE negative for acute DVT - Troponins trended downward after cardiac cath. - Cardiology follow up in 2-3 weeks in the meantime the patient will complete cardiac rehabilitation as an outpatient. - Follow up with your Primary Care Provider within 1 week. Rheumatoid Arthritis -Continue Plaquenil 200 mg PO daily, Prednisone 7.5 mg PO daily Leukocytosis, like secondary to Prednisone treatment for RA: - CXR- no acute processes - UA is clear - Follow CBC HTN: - Continue Atacand 32 mg PO daily - started on metoprolol 12.5 mg BID for above, use hydralazine prn with parameters per EMR Hypothyroidism: - Continue Synthroid 75 mcg PO daily - TSH in Feb 2016 WNL Asthma, unspecified severity - Continue flovent DVT prophylaxis: Heparin 5000 units SQ q12 hrs, TARYN and SCDs Code Status: LEVEL I, FULL Dispo: Discharged to home today Total Time Spent: Greater than 30 minutes This includes examination of the patient, discharge planning, medication reconciliation, and communication with other providers. Discharge Instructions Please refer to the electronic Patient Visit Report (Discharge Instructions) for additional information. Follow-Up Follow up with your Primary Care Provider within 1 week. Follow-up with cardiology in 2-3 weeks Additional Copies To Travis Paredes M.D.
[2016-07-03 09:24] VITALS: BP 124/60
[2016-07-03 09:58] LABS: HEMATOCRIT 33.1 % (37-47); MEAN CELL VOLUME 91.2 fL (80-100); MEAN CORPUSCULAR HGB CONC 32.9 g/dl (32-36); PLATELET COUNT 298 K/uL (130-400); RED BLOOD COUNT 3.63 M/uL (4.2-5.4); WHITE BLOOD COUNT 9.52 K/uL (4.8-10.8)
--- NOTE | 2016-07-03 10:03 | CARDIOLOGY PROGRESS NOTE ---
DATE: 07/03/2016 DATE: 07/03/2016. TIME: 9:23 a.m. SUBJECTIVE: No further chest discomfort. No shortness of breath, syncope, near syncope, palpitations or edema. No bleeding. Her left radial catheterization site is without significant tenderness or pain. No discharge. OBJECTIVE: VITAL SIGNS: Temperature 36.7 degrees, heart rate 70 beats per minute, respiration rate 20, blood pressure 131/71 mmHg, oxygen saturation 95% on room air. I's and O's even fluid balance yesterday. Weight is 68.7 kg. GENERAL: No acute distress. She is alert. NECK: No JVD. CARDIAC EXAMINATION: No ventricular heave. Regular, normal S1, S2. 1/6 early peaking systolic ejection murmur best heard at the right upper sternal border. No rubs or gallops. LUNGS: Clear to auscultation bilaterally without wheezes, rales or rhonchi. ABDOMEN: Soft, nontender, nondistended. Normoactive bowel sounds. EXTREMITIES: No cyanosis or edema. Left radial catheterization site is clean, dry and intact. There is a small ecchymosis. No hematoma. MEDICATIONS: Include aspirin 81 mg daily, metoprolol tartrate 25 mg p.o. b.i.d., atorvastatin 80 mg daily, Atacand 24 mg daily, prednisone 7.5 mg daily. LABORATORY DATA: For today are currently pending. Telemetry rhythm strips personally reviewed. Sinus rhythm. ASSESSMENT AND PLAN: 1. Acute myocardial infarction: She technically had ST elevations on presenting ECG with right-sided chest pain. She did have peak troponin as high as 6.58. She had no coronary artery disease noted on cardiac catheterization performed yesterday. Continue aspirin 81 mg daily. Continue high intensity statin therapy; however, can reduce atorvastatin 40 mg daily. Continue beta primitivo. Cardiac rehabilitation recommended and she is agreeable. Etiology for her symptoms not clear at this time. Cannot rule out coronary vasospasm, spontaneous lysis of coronary thrombosis. We discussed the fact the true etiology is not currently known at this time. If she has recurrent anginal symptoms in the future, could try low dose calcium channel primitivo. This could also be started if she has elevated blood pressure. 2. Abnormal echo: The distal segments were difficult to visualize due to the quality of the images. A repeat echo can be performed as an outpatient with IV echo contrast if necessary. 3. Hypertension: Blood pressure better controlled this morning. She was hypertensive however during or shortly after cardiac catheterization. Otherwise, her blood pressure has been reasonably controlled. Continue current regimen. 4. Mitral regurgitation: Nonsevere. 5. Disposition: She can be discharged today. It has been communicated with Dr. Miller to please include the discharge instructions for the radial cath instruction to help her care for this at home. This was also discussed in person with the patient. Discharge plan was also discussed with Maki Carr. Follow up with cardiology in the next 1-3 weeks. Cardiac rehabilitation also recommended.
[2016-07-03 10:23] LABS: BUN/CREATININE RATIO 16.5 (10-20); CALCIUM 8.3 mg/dl (8.5-10.1); CREATININE 1.1 mg/dl (0.60-1.20); POTASSIUM 4.3 mmol/L (3.5-5.1)
[2016-07-03 11:23] VITALS: BP 124/60; PULSE 70; TEMP 36.7; O2SAT 95
== END 2016-07-03 11:50 | disposition home or self-care (01) | DRG 282 ==
LOC: ENRESERVTM → ENRESERVDT → EDBD 08:10 → C.ED 08:12 → C.2T 10:40 → OBSVTOIN 07-02 07:56
PROVIDERS: ADMIT Internal Medicine; ATTEND Internal Medicine
PROC: B2111ZZ Fluoroscopy of Multiple Coronary Arteries using Low Osmolar Contrast (ICD-10-PCS; principal; 2016-07-02 15:09)
PROC: 4A023N7 Measurement of Cardiac Sampling and Pressure, Left Heart, Percutaneous Approach (ICD-10-PCS; principal; 2016-07-02 15:09)
DX: I21.3 ST elevation (STEMI) myocardial infarction of unspecified site (principal); R53.1 Weakness; M79.606 Pain in leg, unspecified; R60.9 Edema, unspecified; D72.829 Elevated white blood cell count, unspecified; T38.0X5A Adverse effect of glucocorticoids and synthetic analogues, initial encounter; I10 Essential (primary) hypertension; E03.9 Hypothyroidism, unspecified; J45.909 Unspecified asthma, uncomplicated; I34.0 Nonrheumatic mitral (valve) insufficiency; M06.9 Rheumatoid arthritis, unspecified; Z96.652 Presence of left artificial knee joint; Z87.891 Personal history of nicotine dependence; Z82.49 Family history of ischemic heart disease and other diseases of the circulatory system; Z79.83 Long term (current) use of bisphosphonates; Z79.51 Long term (current) use of inhaled steroids; Z79.52 Long term (current) use of systemic steroids; Z79.899 Other long term (current) drug therapy

== ENCOUNTER → 2016-07-11 | Outpatient (CLI) | payer OTHER ==
[~2016-07-11] MED LIST changes: -ALBUAER2 INH; +ASPEC81 PO; +AZELASTINE HCL; +CALC8.5C PO; -CAND1TAB21 PO; +CAND32TA2 PO; +FLUT0.15 NAE; -FLUT44AE INH; +FLVHFA110 INH; +FSMD/70 PO; +LPR25 PO; +LPT40 PO; -OLOP0.1S2 OPB; +OLOP0.1S3 OPB
== END | disposition home or self-care (01) ==
LOC: C.LABBC 15:04
PROVIDERS: ATTEND Physician Assistant Medical
DX: I21.3 ST elevation (STEMI) myocardial infarction of unspecified site (principal); M79.603 Pain in arm, unspecified

== ENCOUNTER → 2016-07-25 | Outpatient (CLI) | payer OTHER | END | disposition home or self-care (01) | LOC: C.LABBC 13:36 | PROVIDERS: ATTEND Physician Assistant Medical | DX: I21.3 ST elevation (STEMI) myocardial infarction of unspecified site (principal) ==

== ENCOUNTER → 2016-08-13 | Outpatient (CLI) | payer OTHER ==
--- NOTE | 2016-08-13 15:49 | MAMMOGRAPHY REPORT ---
UNILATERAL LEFT DIGITAL SCREENING MAMMOGRAM WITH CAD: 08/13/2016 CLINICAL HISTORY: Asymptomatic. Personal history of breast cancer. TECHNIQUE: Current study was also evaluated with a Computer Aided Detection (CAD) system. Left CC and MLO views were obtained. COMPARISON: Comparison is made to exams dated: 08/09/2015 mammogram, 08/07/2014 mammogram, 08/04/2013 mammogram, 08/02/2012 mammogram, 07/21/2011 mammogram, and 07/17/2010 mammogram - [facility] enter. BREAST COMPOSITION: There are scattered areas of fibroglandular density in the left breast. FINDINGS: There are no suspicious masses, calcifications, or areas of architectural distortion note d in the left breast. There has been no significant interval change compared to prior exams. A bio psy marker clip is again noted in the left lower inner quadrant. Benign-appearing scattered calcifi cations are stable. IMPRESSION: ACR BI-RADS CATEGORY 2: BENIGN There is no mammographic evidence of malignancy. A 1 year screening mammogram is recommended. The p atient will receive written notification of the results. Approximately 10% of breast cancers are not detected with mammography. A negative mammographic repor t should not delay biopsy if a clinically suggestive mass is present. Courtney Kiser M.D. ah/:08/13/2016 15:21:03 Seed Cleaner Operator: Lisa LACKEY(Juhi)(M), [facility] letter sent: Normal 1/2 BI-RADS Code: ACR BI-RADS Category 2: Benign
== END | disposition home or self-care (01) ==
LOC: C.MAMM 08:09
PROVIDERS: ATTEND Obstetrics & Gynecology
DX: Z12.31 Encounter for screening mammogram for malignant neoplasm of breast (principal); Z85.3 Personal history of malignant neoplasm of breast

== ENCOUNTER → 2016-10-20 | Outpatient (CLI) | payer OTHER ==
[~2016-10-20] MED LIST changes: +OLOP0.1S2 OPB; -OLOP0.1S3 OPB
[2016-10-20 10:20] LABS: ALT/SGPT 25 U/L (12-78); AST/SGOT 25 U/L (15-37)
== END | disposition home or self-care (01) ==
LOC: C.LAB1850 08:54
PROVIDERS: ATTEND Physician Assistant
DX: Z79.899 Other long term (current) drug therapy (principal)

== ENCOUNTER → 2016-11-18 | Outpatient (CLI) | payer OTHER ==
[2016-11-18 11:10] LABS: BASO % 1.3 %; BASO ABS # 0.13 K/uL (0-0.2); COMPLETE YES; EOS % 5.3 %; HEMATOCRIT 38.4 % (37-47); IG% 0.3 %; LYMPH ABS # 1.73 K/uL (1.2-3.4); MEAN CELL VOLUME 94.6 fL (80-100); MEAN CORPUSCULAR HEMOGLOBIN 30.5 pg (25-34); MEAN CORPUSCULAR HGB CONC 32.3 g/dl (32-36); MEAN PLATELET VOLUME 9.6 fL (7.4-10.4); MONO % 6.1 %; PLATELET COUNT 311 K/uL (130-400); RED BLOOD COUNT 4.06 M/uL (4.2-5.4); WHITE BLOOD COUNT 10.17 K/uL (4.8-10.8)
[2016-11-18 12:04] LABS: BLOOD UREA NITROGEN 22 mg/dl (7-18); BUN/CREATININE RATIO 18.2 (10-20); CARBON DIOXIDE 31 mmol/L (21-32); CHLORIDE 101 mmol/L (98-107); GLUCOSE 86 mg/dl (70-99); POTASSIUM 4.6 mmol/L (3.5-5.1); SODIUM 136 mmol/L (136-145)
== END | disposition home or self-care (01) ==
LOC: C.LABBC 08:54
PROVIDERS: ATTEND Internal Medicine Geriatric Medicine
DX: I10 Essential (primary) hypertension (principal); E55.9 Vitamin D deficiency, unspecified; N18.3 Chronic kidney disease, stage 3 (moderate)

== ENCOUNTER → 2017-05-22 | Outpatient (CLI) | payer OTHER ==
[~2017-05-22] MED LIST changes: -OLOP0.1S2 OPB; +OLOP0.1S3 OPB
[2017-05-22 13:53] LABS: BASO % 1.1 %; BASO ABS # 0.09 K/uL (0-0.2); EOS % 5.3 %; EOS ABS # 0.43 K/uL (0-0.5); HEMATOCRIT 37.6 % (37-47); HEMOGLOBIN 12.4 g/dL (12.0-16.0); IG# 0.02 K/uL (0.00-0.02); LYMPH % 19.7 %; LYMPH ABS # 1.61 K/uL (1.2-3.4); MEAN CELL VOLUME 94.9 fL (80-100); MEAN CORPUSCULAR HEMOGLOBIN 31.3 pg (25-34); MEAN PLATELET VOLUME 9.9 fL (7.4-10.4); MONO % 6.1 %; NEUT % 67.6 %; NEUT ABS # 5.53 K/uL (1.4-6.5); PLATELET COUNT 297 K/uL (130-400); RED CELL DISTRIBUTION WIDTH CV 13.6 % (11.5-14.5); RED CELL DISTRIBUTION WIDTH SD 46.9 fL (36.4-46.3); WHITE BLOOD COUNT 8.18 K/uL (4.8-10.8)
[2017-05-22 14:21] LABS: ALBUMIN 3.4 gm/dl (3.4-5.0); ALT/SGPT 22 U/L (12-78); AST/SGOT 24 U/L (15-37); BLOOD UREA NITROGEN 20 mg/dl (7-18); CALCIUM 9.6 mg/dl (8.5-10.1); CARBON DIOXIDE 30 mmol/L (21-32); CREATININE 1.22 mg/dl (0.60-1.20); GLUCOSE 90 mg/dl (70-99); POTASSIUM 4.6 mmol/L (3.5-5.1); SODIUM 131 mmol/L (136-145); TOTAL PROTEIN 7.1 gm/dl (6.4-8.2)
[2017-05-22 14:32] LABS: ALKALINE PHOSPHATASE 60 U/L (45-117); CHOLESTEROL 124 mg/dl (0-200); LDL CHOLESTEROL CALCULATED 35 mg/dl
== END | disposition home or self-care (01) ==
LOC: C.LABBC 10:37
PROVIDERS: ATTEND Internal Medicine Geriatric Medicine
DX: M06.9 Rheumatoid arthritis, unspecified (principal); E03.9 Hypothyroidism, unspecified; I12.9 Hypertensive chronic kidney disease with stage 1 through stage 4 chronic kidney disease, or unspecified chronic kidney disease; N18.3 Chronic kidney disease, stage 3 (moderate); E55.9 Vitamin D deficiency, unspecified; J45.909 Unspecified asthma, uncomplicated; I21.3 ST elevation (STEMI) myocardial infarction of unspecified site

== ENCOUNTER → 2017-07-29 | Outpatient (CLI) | payer OTHER ==
[~2017-07-29] MED LIST changes: -ASPEC81 PO; +ASPI-320 PO
[2017-07-29 10:48] LABS: BLOOD UREA NITROGEN 23 mg/dl (7-18); CALCIUM 9.6 mg/dl (8.5-10.1); CARBON DIOXIDE 29 mmol/L (21-32); CREATININE 1.15 mg/dl (0.60-1.20); GLUCOSE 75 mg/dl (70-99); POTASSIUM 4.1 mmol/L (3.5-5.1); SODIUM 133 mmol/L (136-145)
== END | disposition home or self-care (01) ==
LOC: C.LABBC 08:11
PROVIDERS: ATTEND Internal Medicine Geriatric Medicine
DX: N18.3 Chronic kidney disease, stage 3 (moderate) (principal); E83.52 Hypercalcemia

== ENCOUNTER → 2017-08-17 | Outpatient (CLI) | payer OTHER ==
--- NOTE | 2017-08-17 14:33 | MAMMOGRAPHY REPORT ---
UNILATERAL LEFT DIGITAL SCREENING MAMMOGRAM TOMOSYNTHESIS WITH CAD: 08/17/2017 CLINICAL HISTORY: Asymptomatic. Personal history of breast cancer. TECHNIQUE: Left breast tomosynthesis in addition to standard 2D mammography was performed. Current st udy was also evaluated with a Computer Aided Detection (CAD) system. COMPARISON: Comparison is made to exams dated: 08/13/2016 mammogram, 08/09/2015 mammogram, 08/07/2014 ma mmogram, 08/04/2013 mammogram, 08/02/2012 mammogram, and 07/21/2011 mammogram - [facility]. BREAST COMPOSITION: There are scattered areas of fibroglandular density in the left breast. FINDINGS: There is a 5 mm nodular asymmetry in the middle one third of the left breast, along the po sterior nipple line on the cc view located 4 cm distal to the nipple and best seen on CC tomosynthesi s slice 15/52, for which additional spot compression tomosynthesis views and possible ultrasound are recommended. There are scattered benign coarse calcifications and mild to moderate vascular calcification in the l eft breast. A stable nyasia-shaped biopsy marker clip in the left lower inner quadrant. No other suspic ious mass, architectural distortion or cluster of microcalcifications is seen. IMPRESSION: ACR BI-RADS CATEGORY 0: INCOMPLETE EVALUATION: NEED ADDITIONAL IMAGING EVALUATION The 5 mm nodular asymmetry middle one third of the in the left breast needs additional evaluation. The patient will be called to schedule an appointment. Approximately 10% of breast cancers are not detected with mammography. A negative mammographic report should not delay biopsy if a clinically suggestive mass is present. Chelsie Guerra M.D. ay/:08/17/2017 11:18:50 [place] Supervisor: Rosemary MOSELEY)(Bree), [facility] letter sent: Addl Imaging 0 BI-RADS Code: ACR BI-RADS Category 0: Incomplete Evaluation: Need Additional Imaging Evaluation
== END | disposition home or self-care (01) ==
LOC: C.MAMM 09:11
PROVIDERS: ATTEND Obstetrics & Gynecology
DX: Z12.31 Encounter for screening mammogram for malignant neoplasm of breast (principal); Z90.11 Acquired absence of right breast and nipple; N64.9 Disorder of breast, unspecified

== ENCOUNTER → 2017-09-02 | Outpatient (CLI) | payer OTHER ==
--- NOTE | 2017-09-03 14:17 | MAMMOGRAPHY REPORT ---
UNILATERAL LEFT DIGITAL DIAGNOSTIC MAMMOGRAM TOMOSYNTHESIS AND TARGETED LEFT ULTRASOUND: 09/02/2017 CLINICAL HISTORY: 82-year-old woman called back from screening mammography for a small 5 mm nodular a symmetry in the middle one third of the left breast along the posterior nipple line on the CC view. She has a personal history of right breast cancer status post mastectomy. TECHNIQUE: Spot compression left CC and MLO tomosynthesis views with a small paddle were performed. COMPARISON: Comparison is made to exams dated: 08/17/2017 mammogram, 08/13/2016 mammogram, 08/09/2015 ivett mogram, 08/07/2014 mammogram, 08/04/2013 mammogram, and 08/02/2012 mammogram - [facility]. BREAST COMPOSITION: There are scattered areas of fibroglandular density in the left breast. FINDINGS: There is effacement of the 5 mm nodular asymmetry in the middle one third of the left cel[address] st along the posterior nipple line on both of these spot compression left cc tomosynthesis views and no corresponding abnormality is identified on the spot compression tomosynthesis MLO views, suggestin g it represented normal overlapping tissue. There is no persistent area of distortion or other suspi cious abnormality identified. Further evaluation with ultrasound was performed. Targeted ultrasound was performed in the left breast 11:00, 12:00, 1:00, retroareolar and 5:00 to 7:0 0 axes. Minimal duct ectasia is identified. There is no evidence of a suspicious solid or cystic ma ss. IMPRESSION: ACR-BI-RADS CATEGORY 3: PROBABLY BENIGN, TARGETED ULTRASOUND ACR-BI-RADS CATEGORY 3: PRO BABLY BENIGN There is effacement of the 5 mm nodular asymmetry with possible distortion in the left breast along t he posterior nipple line on the CC view with all of the supplemental spot compression tomosynthesis i mages, and no suspicious sonographic correlate identified. Although this most likely represented nor mal overlapping tissue, a short interval follow-up left diagnostic tomosynthesis mammogram and possib le ultrasound is recommended to ensure stability in 6 months. These results and recommendations were discussed with the patient and her at the time of the exam. Approximately 10% of breast cancers are not detected with mammography. A negative mammographic report should not delay biopsy if a clinically suggestive mass is present. Chelsie Guerra M.D. ay/:09/02/2017 15:32:07 Rail Car Repairer: Arabella LACKEY(R)(M), [facility] letter sent: Follow Up Recommended 3 BI-RADS Code: ACR-BI-RADS Category 3: Probably Benign Ultrasound BI-RADS: ACR-BI-RADS Category 3: Pr obably Benign
== END | disposition home or self-care (01) ==
LOC: C.MAMM 13:23
PROVIDERS: ATTEND Obstetrics & Gynecology
DX: N64.89 Other specified disorders of breast (principal)